=== PATIENT | male | born 1950 | race Caucasian/White ===

== ENCOUNTER 2017-09-11 18:48 | Emergency (ER) | payer MEDICARE ==
[~2017-09-11] VITALS: Ht 188 cm; Wt 128.4 kg
[2017-09-11 18:52] VITALS: BP 124/91
[2017-09-11] MEDS ORDERED: DIPH,PERTUSS(ACELL),TET VAC/PF 0.5 ML IM-VACC ONE ×2 (19:00→19:14)
[2017-09-11] MEDS ORDERED: LIDOCAINE-MPF 1%, 5ML INFIL ONE (19:00)
[2017-09-11] MEDS ORDERED: LIDOCAINE 1%-EPI 1:100K, 30ML ONE (19:14)
[2017-09-11] MEDS ORDERED: BACITRACIN ZINC OINT 500U/GM, 0.9 GM ONE (19:53)
== END 2017-09-11 20:17 | disposition home or self-care (01) ==
LOC: ED 19:45
DX: S81.811A Laceration without foreign body, right lower leg, initial encounter (principal); I48.91 Unspecified atrial fibrillation; X58.XXXA Exposure to other specified factors, initial encounter; Y93.89 Activity, other specified; Y99.8 Other external cause status; Y92.89 Other specified places as the place of occurrence of the external cause
CPT/HCPCS: 12002; 90471; 90715; 99283